=== PATIENT | male | born 1955 | race Caucasian/White ===

== ENCOUNTER 2017-06-30 16:05 | Emergency (ER) | payer OTHER ==
[~2017-06-30] VITALS: Ht 167.6 cm; Wt 80.7 kg
[2017-06-30 16:38] VITALS: BP 150/77
[2017-06-30] MEDS: NACL 0.9% 1,000 ML IV ONE (16:59)
[2017-06-30 17:05] LABS: APPEARANCE,URINE CLEAR (CLEAR); BASOPHILS % (AUTO) 0.3 % (0.0-2.0); BILIRUBIN,URINE NEGATIVE (NEGATIVE); BLOOD, URINE NEGATIVE (NEGATIVE); COLOR,URINE YELLOW (YELLOW); EOSINOPHILS % (AUTO) 0.1 % (0.0-4.0); HEMATOCRIT 39.3 % (36-52); LEUKOCYTE ESTERASE ,URINE NEGATIVE (NEGATIVE); LYMPHOCYTES # (AUTO) 0.7 K/uL (2.0-11.5); LYMPHOCYTES % (AUTO) 10.5 % (20.5-51.1); MEAN CORPUSCULAR HEMOGLOBIN 29 pg (27-31); MEAN CORPUSCULAR HGB CONC 33 g/dL (33-37); MEAN CORPUSCULAR VOLUME 89.1 fL (80-94); MONOCYTES # (AUTO) 0.5 K/uL (0.8-1.0); MONOCYTES % (AUTO) 7.2 % (1.7-9.3); NEUTROPHILS # (AUTO) 5.8 K/uL (1.8-7.7); NEUTROPHILS % (AUTO) 81.9 % (42.2-75.2); NITRITE, URINE NEGATIVE (NEGATIVE); PH,URINE 5.5 (5.0-9.0); PLATELET COUNT (AUTO) 221 K/uL (140-450); RED BLOOD CELL COUNT(AUTO) 4.41 MIL/uL (4.20-6.10); RED CELL DISTRIBUTION WIDTH 13.4 % (11.6-13.7); UGLUCOSE 3+ (NEGATIVE); WHITE BLOOD COUNT (AUTO) 7.1 K/uL (4.8-10.8)
[2017-06-30 17:10] LABS: ACETONE, SERUM NEGATIVE (NEGATIVE)
[2017-06-30] MEDS: INSULIN REGULAR, HUMAN 100 UNIT/ML VIAL SUBQ ONE ×2 (17:16→18:48)
[2017-06-30 17:23] LABS: ALBUMIN 4.1 g/dL (3.4-5.0); ANION GAP 18.3 (8-16); ASPARTATE AMINOTRANSFERASE 5 U/L (15-37); CARBON DIOXIDE 21.2 mmol/L (21-32); CHLORIDE 97 mmol/L (98-107); CREATININE 1.2 mg/dL (0.7-1.3); GFR ARICAN-AMERICAN 79 mL/min (>90); POTASSIUM 4.5 mmol/L (3.5-5.1); SODIUM SERUM 132 mmol/L (136-145); TOTAL BILIRUBIN 0.3 mg/dL (0.0-1.0); UREA NITROGEN, BLOOD 24 mg/dL (7-18)
[2017-06-30 17:29] LABS: GLUCOSE 573 mg/dL (74-106)
[2017-06-30 19:35] VITALS: BP 135/81
== END 2017-06-30 19:35 | disposition home or self-care (01) ==
LOC: MED 16:05
DX: E11.65 Type 2 diabetes mellitus with hyperglycemia (principal); M79.1 Myalgia
CPT/HCPCS: 36415; 80053; 81003; 82009; 82948; 85025; 96360; 99284; J1815

== ENCOUNTER 2020-12-22 13:58 | Observation (INO) | payer MEDICARE, OTHER, SELFPAY ==
[~2020-12-22] VITALS: Ht 170.2 cm; Wt 95.7 kg
[2020-12-22 14:10] VITALS: BP 155/79
--- NOTE | 2020-12-22 15:14 | NUR ---
BIB WHEECHAIR TO ER BED 11 FROM RADIOLOGY
[2020-12-22 15:27] LABS: EOSINOPHILS # (AUTO) 0.1 K/uL (0-0.4); EOSINOPHILS % (AUTO) 1.5 % (0.0-4.0); HEMATOCRIT 39.1 % (36-52); HEMOGLOBIN 13.1 g/dL (12.0-18.0); LYMPHOCYTES # (AUTO) 1.4 K/uL (2.0-11.5); LYMPHOCYTES % (AUTO) 33.2 % (20.5-51.1); MEAN CORPUSCULAR HEMOGLOBIN 30 pg (27-31); MEAN CORPUSCULAR HGB CONC 34 g/dL (33-37); MEAN CORPUSCULAR VOLUME 90.2 fL (80-94); MONOCYTES # (AUTO) 0.5 K/uL (0.8-1.0); MONOCYTES % (AUTO) 10.7 % (1.7-9.3); NEUTROPHILS # (AUTO) 2.3 K/uL (1.8-7.7); NEUTROPHILS % (AUTO) 53.6 % (42.2-75.2); PLATELET COUNT (AUTO) 262 K/uL (140-450); RED BLOOD CELL COUNT(AUTO) 4.34 MIL/uL (4.20-6.10); RED CELL DISTRIBUTION WIDTH 13.7 % (11.6-13.7); WHITE BLOOD COUNT (AUTO) 4.2 K/uL (4.8-10.8)
--- NOTE | 2020-12-22 15:32 | NUR ---
Dr. Aranda is evaluating pt at bedside
--- NOTE | 2020-12-22 15:32 | NUR ---
65 Y/O M BIB SPOUSE FROM HOME FOR ER REFERRAL OF FAST HEART RATE. PATIENT A&OX4, AMBULATORY, STATES STATES HE WENT TO PCP TODAY, EKG WAS DONE AT OFFICE AND SHOWED SINUS TACHYCARDIA WITH FIRST DEGREE AV BLOCK. DENIES CP, SOB, COUGH OR FEVERS, WEAKNESS, NUMBNESS, HEADACHE, DIZZINESS, LOSS OF BALANCE, NAUSEA, VOMITING, DIARRHEA. PT REPORTS FEELING NERVOUS WHILE AT PCP VISIT. CAP REFILL IMMEDIATE. +2 RADIAL PULSES. SKIN PINK/WARM/DRY. NO EDEMA NOTED. DENIES ANY CARDIAC HISTORY AND DENIES MEDS TODAY PRIOR TO ARRIVAL. BED LOCKED IN LOWEST POSITION, SIDE RAILS X 1, CALL LIGHT IN REACH. SPOUSE AT BEDSIDE. PMH: DM2, HTN NKA MED: INSULIN, UNABLE TO RECALL, STATES HE TOOK 5 PO MEDS THIS MORNING
[2020-12-22 15:53] LABS: ANION GAP 11.4 (8-16); CARBON DIOXIDE 30.6 mmol/L (21-32); CREATININE 0.9 mg/dL (0.6-1.3); TOTAL BILIRUBIN 0.3 mg/dL (0.0-1.0)
--- NOTE | 2020-12-22 16:33 | NUR ---
Patient resting in semi-fowlers position with spouse at bedside. Pt denies chest pain, SOB, nausea, vomiting. All pt needs met at this time. monitor worker in place showing VSS. Bed locked in lowest position, side rails x 1, call light in reach.
--- NOTE | 2020-12-22 18:00 | NUR ---
CT consent form signed
--- NOTE | 2020-12-22 18:11 | NUR ---
PT TAKEN TO CT VIA SARA
--- NOTE | 2020-12-22 18:28 | NUR ---
Patient returned from CT by nima and placed back onto desk monitor. Spouse remains at bedside.
--- NOTE | 2020-12-22 19:00 | NUR ---
Patient resting in position of comfort. Denies pain, nausea. library monitor in place. Bed locked in lowest position, side rails x 1. RR even/unlabored. Spouse at bedside.
--- NOTE | 2020-12-22 19:14 | NUR ---
Report and transfer of care endorsed to DINO Rollins
--- NOTE | 2020-12-22 19:30 | NUR ---
RECEIVED REPORT FROM LONG RN DAYSHIFT NURSE FOR CONTINUITY OF CARE. PT RESTING COMFORTABLE ON ROOM AIR. HE IS PLACED ON BEDSIDE TELE. AT BEDSIDE.
[2020-12-22] MEDS ORDERED: ASPIRIN 325 MG TAB PO ONE (20:45)
--- NOTE | 2020-12-22 21:30 | NUR ---
PT GIVEN ORDERED ASA 325MG PO ORDERD. EDUCATION PROVIDED REGARDING MEDICATION PURPOSES, PT VEBELIZED UNDERSTANDING. ALSO SPOKE WITH SHILPA FROM INSURANCE PROVIDER REGARDEING COVERAGE FOR ADMISSION.
[2020-12-22] MEDS ORDERED: METF-431 PO (22:52)
[2020-12-22] MEDS ORDERED: GLIP10TE PO (22:56)
[2020-12-22] MEDS ORDERED: QUIN40TA PO (22:57)
[2020-12-22] MEDS ORDERED: VITA1TAB44 PO (23:00)
[2020-12-22] MEDS ORDERED: SIMV-30 PO (23:00)
[2020-12-22] MEDS ORDERED: MULT-1301 PO (23:01)
[2020-12-22] MEDS ORDERED: VITD400 PO (23:05)
[2020-12-22] MEDS ORDERED: ASPI-1749 PO (23:05)
[2020-12-22] MEDS ORDERED: INSU100I7 SQ (23:06)
[2020-12-22] MEDS ORDERED: VITAMIN D (23:11)
--- NOTE | 2020-12-23 00:03 | NUR ---
IRWIN COLLECTED AT THIS TIME AND WALKED OVER TO LAB
--- NOTE | 2020-12-23 03:54 | NUR ---
PT IN BED RESTING WITH EYES CLOSED AWAKEN WITH NAME, NO C/O VOICED V/S FOLLOWS: T 97.4 P 82 R 16 B/P 129/78 02 96% ON ROOM AIR.
[2020-12-23] MEDS ORDERED: ONDANSETRON 4 MG/2 ML VIAL IVP PRN (04:35)
[2020-12-23] MEDS ORDERED: POTASSIUM CHLORIDE 10 MEQ TABER PO PRN (04:35)
[2020-12-23] MEDS ORDERED: MAGNESIUM OXIDE 400 MG TAB PO PRN (04:35)
[2020-12-23] MEDS ORDERED: ACETAMINOPHEN 325 MG TAB PO PRN (04:35)
[2020-12-23] MEDS ORDERED: ZOLPIDEM 5 MG TAB PO PRN (04:35)
[2020-12-23] MEDS ORDERED: MAG SULF 2000 MG/WATER PREMIX 50 ML IV PRN (04:35)
[2020-12-23] MEDS ORDERED: KCL 20 MEQ/WATER INJ PREMIX 200 ML IV PRN (04:35)
--- NOTE | 2020-12-23 05:33 | NUR ---
PT IN BED SLEEPING RESPIRATIONS EVEN AND UNLABORED ON ROOM AIR.
[2020-12-23 06:50] LABS: BASOPHILS % (AUTO) 1.1 % (0.0-2.0); EOSINOPHILS # (AUTO) 0.2 K/uL (0-0.4); EOSINOPHILS % (AUTO) 5.9 % (0.0-4.0); HEMOGLOBIN 12.6 g/dL (12.0-18.0); LYMPHOCYTES # (AUTO) 1.3 K/uL (2.0-11.5); LYMPHOCYTES % (AUTO) 39.2 % (20.5-51.1); MEAN CORPUSCULAR HEMOGLOBIN 31 pg (27-31); MEAN CORPUSCULAR HGB CONC 34 g/dL (33-37); MEAN CORPUSCULAR VOLUME 90.1 fL (80-94); MONOCYTES # (AUTO) 0.5 K/uL (0.8-1.0); MONOCYTES % (AUTO) 14.1 % (1.7-9.3); NEUTROPHILS # (AUTO) 1.3 K/uL (1.8-7.7); NEUTROPHILS % (AUTO) 39.7 % (42.2-75.2); PLATELET COUNT (AUTO) 251 K/uL (140-450); RED BLOOD CELL COUNT(AUTO) 4.11 MIL/uL (4.20-6.10); RED CELL DISTRIBUTION WIDTH 13.9 % (11.6-13.7); WHITE BLOOD COUNT (AUTO) 3.2 K/uL (4.8-10.8)
[2020-12-23 07:16] LABS: ALBUMIN 3.6 g/dL (3.4-5.0); ANION GAP 11.9 (8-16); CARBON DIOXIDE 27.7 mmol/L (21-32); CHOL/HDL RATIO 3.3 (1-4.5); CREATININE 0.8 mg/dL (0.6-1.3); MAGNESIUM 1.7 mg/dL (1.8-2.4); POTASSIUM 4.6 mmol/L (3.5-5.1); TOTAL BILIRUBIN 0.4 mg/dL (0.0-1.0)
--- NOTE | 2020-12-23 07:18 | NUR ---
RECEIVED REPORT FROM ALESHA SUN, ASSUMED CARE AT THIS TIME.
--- NOTE | 2020-12-23 07:50 | NUR ---
PATIENT AMBULATED TO RESTROOM WITH STEADY GAIT.
--- NOTE | 2020-12-23 08:20 | NUR ---
PATIENT PROVIDED WITH BREAKFAST TRAY, PATIENT SITTING UP IN BED EATING. ALL NEEDS MET AT THIS TIME.
[2020-12-23] MEDS ORDERED: ASPIRIN 81 MG TAB.CHEW PO SCH (09:00)
[2020-12-23] MEDS ORDERED: ENOXAPARIN 40 MG/0.4 ML SYR SUBQ SCH (09:00)
[2020-12-23] MEDS ORDERED: ATORVASTATIN 20 MG TAB PO SCH (09:00)
--- NOTE | 2020-12-23 10:05 | NUR ---
PATIENT SITTING IN CHAIR AT BEDSIDE, PROVIDED WITH WATER. ON BEDSIDE CLIENT LIAISON, WILL CONTINUE TO MONITOR.
--- NOTE | 2020-12-23 11:40 | NUR ---
PATIENT APPEARS TO BE RESTING WITH EYES CLOSED, AT BEDSIDE. PATIENT ON BEDSIDE MANAGING DIRECTOR ATLAS, VSS. WILL CONTINUE TO MONITOR.
--- NOTE | 2020-12-23 12:00 | NUR ---
PATIENT PROVIDED WITH LUNCH TRAY, PATIENT SITTING UP IN BED. ALL NEEDS MET AT THIS TIME.
--- NOTE | 2020-12-23 14:40 | NUR ---
PATIENT DISCONNECTED FROM MONITOR TO USE RESTROOM, PATIENT AMBULATED WITH STEADY GAIT.
--- NOTE | 2020-12-23 16:20 | NUR ---
DR. GARCIA BEDSIDE SPEAKING WITH PATIENT
[2020-12-23 17:03] VITALS: BP 116/79
[2020-12-23 17:14] VITALS: BP 116/79
--- NOTE | 2020-12-23 17:22 | NUR ---
Patient discharged INPATIENT HOLD IN ER, DISCHARGED BY DR. GARCIA. PATIENT DISCHARGED with v/s stable. Written and verbal after care instructions given and explained. Patient verbalized understanding. Ambulatory with steady gait. All questions addressed prior to discharge. Advised to follow up with PMD.
== END 2020-12-23 17:22 | disposition home or self-care (01) ==
LOC: MED 13:58 → MMU 12-23 04:40 → MTU 12-23 05:52
PROVIDERS: ADMIT Internal Medicine; ATTEND Internal Medicine
DX: I25.10 Atherosclerotic heart disease of native coronary artery without angina pectoris (principal); Z20.822 Contact with and (suspected) exposure to COVID-19; R07.89 Other chest pain; I10 Essential (primary) hypertension; E78.5 Hyperlipidemia, unspecified; E11.9 Type 2 diabetes mellitus without complications; Z79.82 Long term (current) use of aspirin; Z79.899 Other long term (current) drug therapy
CPT/HCPCS: 36415; 71045; 71275; 80053; 80061; 82553; 83036; 83735; 84484; 85025; 85379; 87426; 93005; 96372; 99285; G0378; J1650; Q9967